=== PATIENT | female | born 1965 | race African-American/Black ===

== ENCOUNTER 2020-10-27 14:36 | Inpatient (IN) | payer OTHER ==
[2020-10-27] MEDS ORDERED: predniSONE 20 MG TABLET (UD) PO ONE (14:49)
[2020-10-27] MEDS ORDERED: predniSONE 20 MG TABLET (UD) ONE (15:03)
[2020-10-27] MEDS ORDERED: IBUPROFEN 400 MG TABLET (FP) PO ONE (16:22)
[2020-10-27] MEDS ORDERED: IBUPROFEN 800 MG/8 ML IJ IVPB ONE (16:23)
[2020-10-27] MEDS ORDERED: ACETAMINOPHEN 325 MG TABLET (FP) PO ONE (16:28)
[2020-10-27] MEDS ORDERED: CEFTRIAXONE 1,000 MG in DEXTROSE 5%-WATER - 50 ML IVPB ONE (16:28)
[2020-10-27] MEDS ORDERED: AZITHROMYCIN IVPB 500 MG in DEXTROSE 5%-WATER - 250 ML IVPB ONE (16:30)
[2020-10-27] MEDS ORDERED: ALBUTEROL SO4 2.5/IPRATROPIUM 0.5 INH SOL 3 ML VIAL.NEB. NEB ONE ×3 (16:53→17:25)
[2020-10-27] MEDS ORDERED: ACETAMINOPHEN 1000 MG/100 ML VIAL (NON FORMULARY) IVPB ONE (16:53)
[2020-10-27 17:15] LABS: HEMATOCRIT 36.3 % (32.4-45.2); MCH 29.1 pg (25.7-33.7); MCHC 33.1 g/dl (32.0-36.0); MEAN CELL VOLUME 87.9 fl (80-96); MEAN PLT VOLUME 8.3 fl (7.5-11.1); PLATELET COUNT 208 10^3/uL (134-434); RBC 4.12 M/mm3 (3.60-5.2); RDW 14.6 % (11.6-15.6); WHITE BLOOD COUNT 13.4 K/mm3 (4.0-10.0)
[2020-10-27] MEDS ORDERED: CEFTRIAXONE 1 GM/50 ML BAG ONE (17:20)
[2020-10-27] MEDS ORDERED: AZITHROMYCIN IVPB 500 MG/250 ML BAG IVPB ONE (17:20)
[2020-10-27] MEDS ORDERED: ACETAMINOPHEN INJECTION 100 ML IVPB ONE (17:20)
[2020-10-27 17:36] LABS: CHLORIDE 98 mmol/L (98-107); SODIUM 137 mmol/L (136-145)
[2020-10-27 17:37] LABS: BLOOD UREA NITROGEN 18.9 mg/dL (7-18); CALCIUM 8.6 mg/dL (8.5-10.1); CO2 27 mmol/L (21-32); GLUCOSE,RANDOM 124 mg/dL (74-106)
[2020-10-27 17:41] LABS: CREATININE 1.8 mg/dL (0.55-1.3)
[2020-10-27 17:45] LABS: ANION GAP 11 MMOL/L (8-16)
[2020-10-27] MEDS ORDERED: POTASSIUM CHLORIDE TABS 20 MEQ TABLET.ER (FP) PO ONE ×2 (17:50→17:55)
[2020-10-27] MEDS ORDERED: KCL 10 MEQ IVPB 10 MEQ/100 ML INFUS.BAG IVPB ONE (19:38)
[2020-10-27] MEDS ORDERED: KCL 10 MEQ IVPB 10 MEQ/100 ML INFUS.BAG IVPB SCH (19:45)
[2020-10-27 21:18] LABS: URINE APPEARANCE Clear; URINE BILIRUBIN Negative (NEGATIVE); URINE COLOR Yellow; URINE GLUCOSE (UA) Negative (NEGATIVE); URINE KETONE Negative (NEGATIVE); URINE LEUK ESTERASE 1+ (NEGATIVE); URINE NITRITE Negative (NEGATIVE); URINE PROTEIN 1+ (NEGATIVE); URINE UROBILINOGEN 0.2 mg/dL (0.2-1.0)
[2020-10-27 21:58] LABS: EPI CELLS 16.5 /uL (0-25.1); HYALINE CASTS 0.12 /uL (0-3.1); URINE BACTERIA 16.7 /uL (0-1359); URINE RBC 7.4 /uL (0-23.9); URINE WBC 61.2 /uL (0-25.8)
[2020-10-27 23:54] LABS: CHLORIDE 104 mmol/L (98-107); SODIUM 140 mmol/L (136-145)
[2020-10-27] MEDS ORDERED: MELATONIN 5 MG TABLETS PO ONE (23:55)
[2020-10-27 23:56] LABS: BLOOD UREA NITROGEN 17.1 mg/dL (7-18); CALCIUM 8.3 mg/dL (8.5-10.1); CO2 25 mmol/L (21-32); GLUCOSE,RANDOM 202 mg/dL (74-106)
[2020-10-28] LABS: CREATININE 1.5 mg/dL (0.55-1.3)
[2020-10-28 00:46] LABS: ANION GAP 11 MMOL/L (8-16)
[2020-10-28] MEDS: ACETAMINOPHEN 325 MG TABLET (FP) PO PRN ×3 (04:26→20:06)
[2020-10-28 06:02] LABS: BASO % 0.1 % (0-2.0); HEMATOCRIT 32.4 % (32.4-45.2); HEMOGLOBIN 10.4 GM/dL (10.7-15.3); LYMPH % 1.9 % (8-40); MCH 28.5 pg (25.7-33.7); MEAN CELL VOLUME 88.9 fl (80-96); MEAN PLT VOLUME 8.4 fl (7.5-11.1); PLATELET COUNT 221 10^3/uL (134-434); RBC 3.65 M/mm3 (3.60-5.2); RDW 15.2 % (11.6-15.6); WHITE BLOOD COUNT 13.3 K/mm3 (4.0-10.0)
[2020-10-28 06:22] LABS: CHLORIDE 103 mmol/L (98-107); SODIUM 138 mmol/L (136-145)
[2020-10-28 06:24] LABS: CALCIUM 8.4 mg/dL (8.5-10.1)
[2020-10-28 06:25] LABS: ALBUMIN 2.6 g/dl (3.4-5.0); BLOOD UREA NITROGEN 22.4 mg/dL (7-18); CO2 25 mmol/L (21-32); GLUCOSE,RANDOM 123 mg/dL (74-106); MAGNESIUM 2.2 mg/dL (1.8-2.4)
[2020-10-28 06:28] LABS: CREATININE 1.3 mg/dL (0.55-1.3); SGOT/AST 32 U/L (15-37); SGPT/ALT 24 U/L (13-61)
[2020-10-28 06:29] LABS: BILIRUBIN,TOTAL 0.3 mg/dL (0.2-1)
[2020-10-28 06:30] LABS: TOT PROT 6.4 g/dl (6.4-8.2)
[2020-10-28 06:31] LABS: ALK PHOS 104 U/L (45-117)
[2020-10-28 06:39] LABS: ANION GAP 10 MMOL/L (8-16)
[2020-10-28] MEDS ORDERED: KCL 10 MEQ IVPB 30 MEQ/300 ML INFUS.BAG IVPB ONE (07:33)
[2020-10-28] MEDS: KCL 10 MEQ IVPB 10 MEQ/100 ML INFUS.BAG IVPB SCH ×3 (08:00→11:55)
[2020-10-28] MEDS ORDERED: ACETAMINOPHEN 325 MG TABLET (FP) ONE ×2 (09:54→13:51)
[2020-10-28] MEDS ORDERED: CEFTRIAXONE 1 GM/50 ML BAG ONE (09:54)
[2020-10-28] MEDS ORDERED: AZITHROMYCIN IVPB 500 MG/250 ML BAG IVPB ONE (09:54)
[2020-10-28] MEDS ORDERED: POTASSIUM CHLORIDE TABS 20 MEQ TABLET.ER (FP) PO ONE ×2 (09:56→16:40)
[2020-10-28] MEDS: CEFTRIAXONE 1 GM in DEXTROSE 5%-WATER - 50 ML IVPB SCH (10:00)
[2020-10-28 10:13] LABS: ANISOCYTOSIS 0; HELMET CELLS 0; HOWELL-JOLLY BODIES 0; MACROCYTOSIS 0; OVALOCYTE 0; PLATELET ESTIMATE NORMAL; ROULEAU 0; SICKELED CELLS 0; TARGET CELLS 0; TEAR DROP CELLS 0; TOXIC GRANULATION 0
[2020-10-28] MEDS: AZITHROMYCIN IVPB 500 MG/250 ML BAG IVPB SCH (10:49)
[2020-10-28] MEDS: predniSONE 20 MG TABLET (UD) PO SCH (10:50)
[2020-10-28 11:07] LABS: SARS-CoV-2 NAA Not Detected (Not Detected)
[2020-10-28] MEDS ORDERED: amLODIPine BESYLATE 5 MG TABLET (FP) ONE (11:12)
[2020-10-28] MEDS ORDERED: predniSONE 20 MG TABLET (UD) ONE (11:12)
[2020-10-28] MEDS ORDERED: POTASSIUM CHLORIDE ORAL LIQUID 20 MEQ/15 ML ONE ×2 (11:13→17:00)
[2020-10-28] MEDS: amLODIPine BESYLATE 10 MG TABLET (FP) PO SCH (11:53)
[2020-10-28] MEDS: NICOTINE 14 MG/24 HOURS TOPICAL PATCH TD SCH (11:54)
[2020-10-28] MEDS ORDERED: ENOXAPARIN NA (PORCINE) 40 MG/0.4 ML DISP.SYRIN SQ ONE (13:35)
[2020-10-28] MEDS: ENOXAPARIN NA (PORCINE) 40 MG/0.4 ML DISP.SYRIN SQ SCH (13:45)
[2020-10-28 14:15] LABS: CALCIUM 8.5 mg/dL (8.5-10.1)
[2020-10-28 14:16] LABS: BLOOD UREA NITROGEN 21.1 mg/dL (7-18)
[2020-10-28 14:16] LABS: N-TERMINAL BNP 589.1 pg/ml (5-125)
[2020-10-28 14:19] LABS: CREATININE 1.2 mg/dL (0.55-1.3)
[2020-10-28] MEDS: ALBUTEROL SO4 2.5/IPRATROPIUM 0.5 INH SOL 3 ML VIAL.NEB. NEB PRN (18:54)
[2020-10-28] MEDS: POTASSIUM CHLORIDE TABS 20 MEQ TABLET.ER (FP) PO SCH (18:59)
[2020-10-28] MEDS ORDERED: PT OWN MED DRAWER 7, Y5N ONE (19:05)
[2020-10-28 20:49] LABS: CALCIUM 8.6 mg/dL (8.5-10.1)
[2020-10-28 20:50] LABS: BLOOD UREA NITROGEN 21.4 mg/dL (7-18)
[2020-10-28 20:53] LABS: CREATININE 1.2 mg/dL (0.55-1.3)
[2020-10-28] MEDS ORDERED: ZOLPIDEM TARTRATE 5 MG TABLET PO PRN (22:00)
[2020-10-29] MEDS: POTASSIUM CHLORIDE TABS 20 MEQ TABLET.ER (FP) PO SCH (00:30)
[2020-10-29] MEDS: ACETAMINOPHEN 325 MG TABLET (FP) PO PRN ×3 (04:53→19:31)
[2020-10-29] MEDS ORDERED: PT OWN MED DRAWER 7, Y5N ONE (09:23)
[2020-10-29] MEDS ORDERED: DEXTROSE 5%-WATER - 50 ML IVPB ONE (09:24)
[2020-10-29] MEDS ORDERED: cefTRIAXone SODIUM 1 GM VIAL ONE ×2 (09:24→10:13)
[2020-10-29] MEDS: NICOTINE 14 MG/24 HOURS TOPICAL PATCH TD SCH (09:29)
[2020-10-29] MEDS: amLODIPine BESYLATE 10 MG TABLET (FP) PO SCH (09:30)
[2020-10-29] MEDS: predniSONE 20 MG TABLET (UD) PO SCH (09:30)
[2020-10-29] MEDS: CEFTRIAXONE 1 GM in DEXTROSE 5%-WATER - 50 ML IVPB SCH (09:30)
[2020-10-29] MEDS: ENOXAPARIN NA (PORCINE) 40 MG/0.4 ML DISP.SYRIN SQ SCH (09:30)
[2020-10-29] MEDS: AZITHROMYCIN IVPB 500 MG/250 ML BAG IVPB SCH (09:31)
[2020-10-29 09:51] LABS: BASO % 0.1 % (0-2.0); HEMOGLOBIN 10.8 GM/dL (10.7-15.3); MCH 28.9 pg (25.7-33.7); MCHC 32.8 g/dl (32.0-36.0); MEAN CELL VOLUME 88.2 fl (80-96); MEAN PLT VOLUME 7.5 fl (7.5-11.1); MONO % 3.8 % (3.8-10.2); NEUT % 91.1 % (42.8-82.8); PLATELET COUNT 254 10^3/uL (134-434); RBC 3.74 M/mm3 (3.60-5.2); RDW 15.1 % (11.6-15.6); WHITE BLOOD COUNT 9.4 K/mm3 (4.0-10.0)
[2020-10-29 10:21] LABS: BLOOD UREA NITROGEN 18.3 mg/dL (7-18)
[2020-10-29 10:22] LABS: CALCIUM 8.3 mg/dL (8.5-10.1); MAGNESIUM 2.4 mg/dL (1.8-2.4)
[2020-10-29 10:25] LABS: CREATININE 1.1 mg/dL (0.55-1.3)
[2020-10-29 10:54] LABS: ANISOCYTOSIS 0; HELMET CELLS 0; HOWELL-JOLLY BODIES 0; MACROCYTOSIS 0; OVALOCYTE 0; PLATELET ESTIMATE NORMAL; ROULEAU 0; SICKELED CELLS 0; TARGET CELLS 0; TEAR DROP CELLS 0; TOXIC GRANULATION 0
[2020-10-29] MEDS ORDERED: ALPRAZolam 0.25 MG TABLET PO PRN (12:11)
[2020-10-29] MEDS: ALBUTEROL SO4 2.5/IPRATROPIUM 0.5 INH SOL 3 ML VIAL.NEB. NEB PRN (20:15)
[2020-10-29] MEDS ORDERED: ALPRAZolam 0.25 MG TABLET PO ONE (20:45)
[2020-10-30] MEDS ORDERED: BENZOCAINE/MENTH/CETYLPYRD CL 1 EACH LOZENGE MM ONE (03:30)
[2020-10-30] MEDS: ACETAMINOPHEN 325 MG TABLET (FP) PO PRN ×3 (03:42→21:25)
[2020-10-30] MEDS: ALBUTEROL SO4 2.5/IPRATROPIUM 0.5 INH SOL 3 ML VIAL.NEB. NEB PRN ×3 (03:47→20:30)
[2020-10-30] MEDS ORDERED: guaiFENesin 200 MG/10 ML 10 ML UNIT-DOSE CUPS PO ONE (06:15)
[2020-10-30 07:12] LABS: BASO % 0.2 % (0-2.0); HEMATOCRIT 32.4 % (32.4-45.2); HEMOGLOBIN 10.6 GM/dL (10.7-15.3); MCH 28.9 pg (25.7-33.7); MCHC 32.8 g/dl (32.0-36.0); MEAN CELL VOLUME 88.4 fl (80-96); MEAN PLT VOLUME 8.1 fl (7.5-11.1); MONO % 5.7 % (3.8-10.2); NEUT % 89.1 % (42.8-82.8); PLATELET COUNT 268 10^3/uL (134-434); RBC 3.67 M/mm3 (3.60-5.2); RDW 15.5 % (11.6-15.6); WHITE BLOOD COUNT 7.8 K/mm3 (4.0-10.0)
[2020-10-30 07:33] LABS: CALCIUM 8.2 mg/dL (8.5-10.1)
[2020-10-30 07:34] LABS: BLOOD UREA NITROGEN 20.3 mg/dL (7-18); MAGNESIUM 2.5 mg/dL (1.8-2.4)
[2020-10-30 07:37] LABS: CREATININE 0.9 mg/dL (0.55-1.3)
[2020-10-30 09:00] LABS: ANISOCYTOSIS 0; HELMET CELLS 0; HOWELL-JOLLY BODIES 0; MACROCYTOSIS 0; OVALOCYTE 0; PLATELET ESTIMATE NORMAL; ROULEAU 0; SICKELED CELLS 0; TARGET CELLS 0; TEAR DROP CELLS 0; TOXIC GRANULATION 0
[2020-10-30] MEDS ORDERED: DEXTROSE 5%-WATER - 50 ML IVPB ONE (09:08)
[2020-10-30] MEDS ORDERED: cefTRIAXone SODIUM 1 GM VIAL ONE (09:08)
[2020-10-30] MEDS ORDERED: PT OWN MED DRAWER 7, Y5N ONE (09:08)
[2020-10-30] MEDS: ENOXAPARIN NA (PORCINE) 40 MG/0.4 ML DISP.SYRIN SQ SCH (09:23)
[2020-10-30] MEDS: guaiFENesin 200 MG/10 ML 10 ML UNIT-DOSE CUPS PO PRN ×2 (09:23→21:24)
[2020-10-30] MEDS: amLODIPine BESYLATE 10 MG TABLET (FP) PO SCH (09:24)
[2020-10-30] MEDS: predniSONE 20 MG TABLET (UD) PO SCH (09:24)
[2020-10-30] MEDS: CEFTRIAXONE 1 GM in DEXTROSE 5%-WATER - 50 ML IVPB SCH (09:24)
[2020-10-30] MEDS: NICOTINE 14 MG/24 HOURS TOPICAL PATCH TD SCH (09:25)
[2020-10-30] MEDS: AZITHROMYCIN IVPB 500 MG/250 ML BAG IVPB SCH (09:25)
[2020-10-30] MEDS: ALPRAZolam 0.25 MG TABLET PO PRN (21:24)
[2020-10-30] MEDS: BENZOCAINE/MENTH/CETYLPYRD CL 1 EACH LOZENGE MM PRN (21:24)
[2020-10-31 07:18] LABS: BASO % 0.1 % (0-2.0); EOS % 0.1 % (0-4.5); HEMATOCRIT 33.3 % (32.4-45.2); MCH 29.2 pg (25.7-33.7); MCHC 32.9 g/dl (32.0-36.0); MEAN CELL VOLUME 88.6 fl (80-96); MONO % 4.5 % (3.8-10.2); NEUT % 87.3 % (42.8-82.8); PLATELET COUNT 358 10^3/uL (134-434); RBC 3.75 M/mm3 (3.60-5.2); RDW 15.6 % (11.6-15.6); WHITE BLOOD COUNT 9.1 K/mm3 (4.0-10.0)
[2020-10-31] MEDS: ACETAMINOPHEN 325 MG TABLET (FP) PO PRN ×2 (07:35→20:52)
[2020-10-31 07:36] LABS: CHLORIDE 110 mmol/L (98-107); SODIUM 143 mmol/L (136-145)
[2020-10-31 07:43] LABS: CALCIUM 8.6 mg/dL (8.5-10.1)
[2020-10-31 07:44] LABS: ANION GAP 8 MMOL/L (8-16); BLOOD UREA NITROGEN 22.6 mg/dL (7-18); CO2 25 mmol/L (21-32); GLUCOSE,RANDOM 101 mg/dL (74-106); MAGNESIUM 2.7 mg/dL (1.8-2.4)
[2020-10-31 07:47] LABS: CREATININE 0.9 mg/dL (0.55-1.3)
[2020-10-31] MEDS ORDERED: DEXTROSE 5%-WATER - 50 ML IVPB ONE (09:25)
[2020-10-31] MEDS ORDERED: cefTRIAXone SODIUM 1 GM VIAL ONE (09:25)
[2020-10-31] MEDS: ENOXAPARIN NA (PORCINE) 40 MG/0.4 ML DISP.SYRIN SQ SCH (09:45)
[2020-10-31] MEDS: CEFTRIAXONE 1 GM in DEXTROSE 5%-WATER - 50 ML IVPB SCH (09:45)
[2020-10-31] MEDS: predniSONE 20 MG TABLET (UD) PO SCH (09:46)
[2020-10-31] MEDS: NICOTINE 14 MG/24 HOURS TOPICAL PATCH TD SCH (09:46)
[2020-10-31] MEDS: amLODIPine BESYLATE 10 MG TABLET (FP) PO SCH (09:46)
[2020-10-31 10:22] LABS: ANISOCYTOSIS 1+; MACROCYTOSIS 0; PLATELET ESTIMATE NORMAL
[2020-10-31] MEDS: ALBUTEROL SO4 2.5/IPRATROPIUM 0.5 INH SOL 3 ML VIAL.NEB. NEB PRN ×2 (11:35→15:40)
[2020-10-31] MEDS: PANTOPRAZOLE 40 MG TABLET PO SCH (11:38)
[2020-10-31] MEDS: BENZOCAINE/MENTH/CETYLPYRD CL 1 EACH LOZENGE MM PRN (11:38)
[2020-10-31] MEDS: AZITHROMYCIN IVPB 500 MG/250 ML BAG IVPB SCH (11:38)
[2020-10-31] MEDS: guaiFENesin 200 MG/10 ML 10 ML UNIT-DOSE CUPS PO PRN (20:52)
[2020-10-31] MEDS: ALPRAZolam 0.25 MG TABLET PO PRN (20:52)
[2020-11-01] MEDS: ACETAMINOPHEN 325 MG TABLET (FP) PO PRN ×2 (06:43→13:27)
[2020-11-01 07:29] LABS: BASO % 0.3 % (0-2.0); EOS % 0.3 % (0-4.5); HEMOGLOBIN 10.9 GM/dL (10.7-15.3); LYMPH % 9.6 % (8-40); MCH 28.7 pg (25.7-33.7); MCHC 32.1 g/dl (32.0-36.0); MEAN CELL VOLUME 89.3 fl (80-96); MEAN PLT VOLUME 8.2 fl (7.5-11.1); MONO % 4.5 % (3.8-10.2); NEUT % 85.3 % (42.8-82.8); PLATELET COUNT 424 10^3/uL (134-434); RBC 3.81 M/mm3 (3.60-5.2); WHITE BLOOD COUNT 10.8 K/mm3 (4.0-10.0)
[2020-11-01 07:45] LABS: CALCIUM 8.4 mg/dL (8.5-10.1)
[2020-11-01 07:46] LABS: BLOOD UREA NITROGEN 23.4 mg/dL (7-18)
[2020-11-01 07:49] LABS: CREATININE 0.8 mg/dL (0.55-1.3)
[2020-11-01] MEDS ORDERED: cefTRIAXone SODIUM 1 GM VIAL ONE (08:43)
[2020-11-01] MEDS ORDERED: DEXTROSE 5%-WATER - 50 ML IVPB ONE (08:43)
[2020-11-01] MEDS ORDERED: PT OWN MED DRAWER 7, Y5N ONE (08:43)
[2020-11-01] MEDS: CEFTRIAXONE 1 GM in DEXTROSE 5%-WATER - 50 ML IVPB SCH (09:05)
[2020-11-01] MEDS: PANTOPRAZOLE 40 MG TABLET PO SCH (09:11)
[2020-11-01] MEDS: amLODIPine BESYLATE 10 MG TABLET (FP) PO SCH (09:11)
[2020-11-01] MEDS: ENOXAPARIN NA (PORCINE) 40 MG/0.4 ML DISP.SYRIN SQ SCH (09:11)
[2020-11-01] MEDS: NICOTINE 14 MG/24 HOURS TOPICAL PATCH TD SCH (09:11)
[2020-11-01] MEDS: predniSONE 20 MG TABLET (UD) PO SCH (09:11)
[2020-11-01] MEDS: guaiFENesin 200 MG/10 ML 10 ML UNIT-DOSE CUPS PO PRN ×2 (09:13→21:44)
[2020-11-01] MEDS: BENZOCAINE/MENTH/CETYLPYRD CL 1 EACH LOZENGE MM PRN ×2 (09:13→13:27)
[2020-11-01] MEDS: AZITHROMYCIN IVPB 500 MG/250 ML BAG IVPB SCH (10:19)
[2020-11-01 11:32] LABS: ANISOCYTOSIS 0; HELMET CELLS 0; HOWELL-JOLLY BODIES 0; MACROCYTOSIS 0; OVALOCYTE 0; PLATELET ESTIMATE NORMAL; ROULEAU 0; SICKELED CELLS 0; TARGET CELLS 0; TEAR DROP CELLS 0; TOXIC GRANULATION 0
[2020-11-01] MEDS: ALBUTEROL SO4 2.5/IPRATROPIUM 0.5 INH SOL 3 ML VIAL.NEB. NEB PRN (20:19)
[2020-11-01] MEDS: ALPRAZolam 0.25 MG TABLET PO PRN (21:44)
[2020-11-01] MEDS: predniSONE 10 MG TABLET (UD) PO SCH (23:31)
[2020-11-02] MEDS: ACETAMINOPHEN 325 MG TABLET (FP) PO PRN ×2 (05:51→10:53)
[2020-11-02 07:38] LABS: BASO % 0.3 % (0-2.0); EOS % 0.5 % (0-4.5); HEMATOCRIT 33.2 % (32.4-45.2); HEMOGLOBIN 10.8 GM/dL (10.7-15.3); LYMPH % 8.3 % (8-40); MCHC 32.7 g/dl (32.0-36.0); MEAN CELL VOLUME 88.7 fl (80-96); MEAN PLT VOLUME 7.6 fl (7.5-11.1); MONO % 5.6 % (3.8-10.2); NEUT % 85.3 % (42.8-82.8); PLATELET COUNT 484 10^3/uL (134-434); RBC 3.74 M/mm3 (3.60-5.2); WHITE BLOOD COUNT 12.9 K/mm3 (4.0-10.0)
[2020-11-02 08:01] LABS: CALCIUM 8.5 mg/dL (8.5-10.1)
[2020-11-02 08:02] LABS: BLOOD UREA NITROGEN 19.2 mg/dL (7-18)
[2020-11-02 08:05] LABS: CREATININE 0.9 mg/dL (0.55-1.3)
[2020-11-02 09:51] LABS: ANISOCYTOSIS 0; MACROCYTOSIS 0; PLATELET ESTIMATE NORMAL
[2020-11-02] MEDS ORDERED: PT OWN MED DRAWER 7, Y5N ONE (10:23)
[2020-11-02] MEDS ORDERED: cefTRIAXone SODIUM 1 GM VIAL ONE (10:24)
[2020-11-02] MEDS ORDERED: DEXTROSE 5%-WATER - 50 ML IVPB ONE (10:24)
[2020-11-02] MEDS: amLODIPine BESYLATE 10 MG TABLET (FP) PO SCH (10:35)
[2020-11-02] MEDS: guaiFENesin 200 MG/10 ML 10 ML UNIT-DOSE CUPS PO PRN ×2 (10:35→19:37)
[2020-11-02] MEDS: predniSONE 10 MG TABLET (UD) PO SCH (10:35)
[2020-11-02] MEDS: CEFTRIAXONE 1 GM in DEXTROSE 5%-WATER - 50 ML IVPB SCH (10:35)
[2020-11-02] MEDS: PANTOPRAZOLE 40 MG TABLET PO SCH (10:35)
[2020-11-02] MEDS: NICOTINE 14 MG/24 HOURS TOPICAL PATCH TD SCH (10:35)
[2020-11-02] MEDS: ENOXAPARIN NA (PORCINE) 40 MG/0.4 ML DISP.SYRIN SQ SCH (10:36)
[2020-11-02] MEDS: AZITHROMYCIN IVPB 500 MG/250 ML BAG IVPB SCH (10:37)
[2020-11-02] MEDS: ALBUTEROL SO4 2.5/IPRATROPIUM 0.5 INH SOL 3 ML VIAL.NEB. NEB PRN (11:02)
[2020-11-02] MEDS: ALPRAZolam 0.25 MG TABLET PO PRN (19:37)
[2020-11-02 22:00] VITALS: BMI 36.6
[2020-11-03] MEDS: ACETAMINOPHEN 325 MG TABLET (FP) PO PRN ×2 (05:41→17:38)
[2020-11-03] MEDS ORDERED: cefTRIAXone SODIUM 1 GM VIAL ONE (09:01)
[2020-11-03] MEDS ORDERED: DEXTROSE 5%-WATER - 50 ML IVPB ONE (09:01)
[2020-11-03] MEDS ORDERED: PT OWN MED DRAWER 7, Y5N ONE (09:01)
[2020-11-03] MEDS: PANTOPRAZOLE 40 MG TABLET PO SCH (10:02)
[2020-11-03] MEDS: guaiFENesin 200 MG/10 ML 10 ML UNIT-DOSE CUPS PO PRN ×2 (10:02→20:56)
[2020-11-03] MEDS: NICOTINE 14 MG/24 HOURS TOPICAL PATCH TD SCH (10:02)
[2020-11-03] MEDS: predniSONE 10 MG TABLET (UD) PO SCH (10:02)
[2020-11-03] MEDS: amLODIPine BESYLATE 10 MG TABLET (FP) PO SCH (10:03)
[2020-11-03] MEDS: ENOXAPARIN NA (PORCINE) 40 MG/0.4 ML DISP.SYRIN SQ SCH (10:03)
[2020-11-03] MEDS: AZITHROMYCIN IVPB 500 MG/250 ML BAG IVPB SCH (10:03)
[2020-11-03] MEDS: CEFTRIAXONE 1 GM in DEXTROSE 5%-WATER - 50 ML IVPB SCH (10:03)
[2020-11-03] MEDS: ALBUTEROL SO4 2.5/IPRATROPIUM 0.5 INH SOL 3 ML VIAL.NEB. NEB PRN (19:50)
[2020-11-03] MEDS: ALPRAZolam 0.25 MG TABLET PO PRN (20:56)
[2020-11-04] MEDS: ACETAMINOPHEN 325 MG TABLET (FP) PO PRN ×2 (00:46→10:45)
[2020-11-04 07:42] LABS: BASO % 0.4 % (0-2.0); EOS % 0.8 % (0-4.5); HEMATOCRIT 33.8 % (32.4-45.2); HEMOGLOBIN 10.8 GM/dL (10.7-15.3); LYMPH % 12.5 % (8-40); MCH 28.4 pg (25.7-33.7); MCHC 31.9 g/dl (32.0-36.0); MEAN PLT VOLUME 7.5 fl (7.5-11.1); MONO % 2.7 % (3.8-10.2); NEUT % 83.6 % (42.8-82.8); PLATELET COUNT 557 10^3/uL (134-434); RBC 3.79 M/mm3 (3.60-5.2); RDW 15.8 % (11.6-15.6); WHITE BLOOD COUNT 12.1 K/mm3 (4.0-10.0)
[2020-11-04 07:57] LABS: BLOOD UREA NITROGEN 16.4 mg/dL (7-18); CALCIUM 8.6 mg/dL (8.5-10.1)
[2020-11-04 08:00] LABS: CREATININE 0.8 mg/dL (0.55-1.3)
[2020-11-04 09:30] LABS: ANISOCYTOSIS 1+; MACROCYTOSIS 1+; OVALOCYTE 1+; PLATELET ESTIMATE INCREASED; TARGET CELLS 1+; TEAR DROP CELLS 1+
[2020-11-04 10:36] VITALS: BP 114/77; TEMP 98.6
[2020-11-04] MEDS: ENOXAPARIN NA (PORCINE) 40 MG/0.4 ML DISP.SYRIN SQ SCH (10:37)
[2020-11-04] MEDS: NICOTINE 14 MG/24 HOURS TOPICAL PATCH TD SCH (10:38)
[2020-11-04] MEDS: predniSONE 10 MG TABLET (UD) PO SCH (10:38)
[2020-11-04] MEDS: PANTOPRAZOLE 40 MG TABLET PO SCH (10:39)
[2020-11-04] MEDS: amLODIPine BESYLATE 10 MG TABLET (FP) PO SCH (10:39)
[2020-11-04] MEDS: CEFTRIAXONE 1 GM in DEXTROSE 5%-WATER - 50 ML IVPB SCH (10:39)
[2020-11-04] MEDS: AZITHROMYCIN IVPB 500 MG/250 ML BAG IVPB SCH (10:40)
[2020-11-04] MEDS ORDERED: AZITHROMYCIN 500 MG TABLET PO SCH (11:15)
[2020-11-04 11:45] VITALS: PULSE 87
== END 2020-11-04 13:58 | disposition home or self-care (01) | DRG 720 ==
LOC: JER 14:36 → JERBED 16:44 → J4S 10-28 18:16
PROVIDERS: ADMIT Internal Medicine; ATTEND Internal Medicine
DX: A41.9 Sepsis, unspecified organism (principal); J96.91 Respiratory failure, unspecified with hypoxia; J15.9 Unspecified bacterial pneumonia; I11.0 Hypertensive heart disease with heart failure; I50.32 Chronic diastolic (congestive) heart failure; N17.9 Acute kidney failure, unspecified; E87.6 Hypokalemia; E66.9 Obesity, unspecified; Z68.36 Body mass index [BMI] 36.0-36.9, adult; Z20.822 Contact with and (suspected) exposure to COVID-19; F17.210 Nicotine dependence, cigarettes, uncomplicated; E86.0 Dehydration; E83.42 Hypomagnesemia; D64.9 Anemia, unspecified
CPT/HCPCS: 36415; 71045-TC-FY; 71046-TC-FY; 71250-TC; 80048; 80053; 81003; 82550; 82553; 83605; 83735; 83880; 85025; 85027; 87086; 87278; 87804; 87899; 93005; 93010; 93306-TC; 94010; 94640; 94761; 99285-25; C9803; J0131; U0003; U0005